=== PATIENT | female | born 1995 | race Hispanic/Latino ===

== ENCOUNTER 2017-10-04 04:13 | Emergency (ER) | payer MEDICAID, OTHER ==
[2017-10-04] MEDS ORDERED: ACETAMINOPHEN 325 MG TAB ONE (05:55)
== END 2017-10-04 07:27 | disposition home or self-care (01) ==
LOC: EDH 04:13
DX: O9A.211 Injury, poisoning and certain other consequences of external causes complicating pregnancy, first trimester (principal); S00.83XA Contusion of other part of head, initial encounter; M54.9 Dorsalgia, unspecified; Z3A.09 9 weeks gestation of pregnancy; Y04.0XXA Assault by unarmed brawl or fight, initial encounter; Y93.89 Activity, other specified; Y92.89 Other specified places as the place of occurrence of the external cause; Y99.8 Other external cause status

== ENCOUNTER 2018-02-01 22:51 | Observation (INO) | payer MEDICAID ==
[~2018-02-01] VITALS: Ht 152.4 cm; Wt 54.9 kg
[2018-02-01] MEDS ORDERED: FERR1TAB22 PO (23:09)
[2018-02-01] MEDS ORDERED: PREN-196 PO (23:09)
[2018-02-01 23:20] LABS: APPEARANCE,URINE Cloudy (CLEAR); BILIRUBIN,URINE Negative (NEGATIVE); COLOR,URINE Yellow (YELLOW); GLUCOSE, URINE (UA) Negative (NEGATIVE); KETONES,URINE Negative (NEGATIVE); LEUKOCYTE ESTERASE ,URINE Large (NEGATIVE); NITRATE,URINE Negative (NEGATIVE); OCCULT BLOOD,URINE Trace (NEGATIVE); PROTEIN,URINE Negative (NEGATIVE); UROBILINOGEN,URINE 0.2 mg/dL (0.2-1.0)
[2018-02-01 23:27] LABS: BACTERIA,URINE Few /HPF (None Seen); WBC,URINE 26-50 /HPF (0-1)
[2018-02-01 23:28] LABS: AMORPHOUS SEDIMENT,UR Many /LPF (None Seen); AMPHET/METH SCREEN,URINE NEGATIVE (NEGATIVE); BARBITURATE SCREEN, URINE NEGATIVE (NEGATIVE); BENZODIAZEPINES SCREEN,URINE NEGATIVE (NEGATIVE); CANNABINOID SCREEN,URINE NEGATIVE (NEGATIVE); COCAINE SCREEN,URINE NEGATIVE (NEGATIVE); MUCUS,URINE Moderate LPF (None Seen); OPIATE SCREEN,URINE NEGATIVE (NEGATIVE); PHENCYCLIDINE SCREEN,URINE NEGATIVE (NEGATIVE); SQUAMOUS EPITHELIAL CELL,UR Many /HPF (0-2)
[2018-02-02] MEDS ORDERED: CEFTRIAXONE SODIUM 1 GM ONE (00:55)
[2018-02-02] MEDS ORDERED: CEFTRIAXONE 1GM/D5W 50ML 50 ML IV SCH (01:00)
[2018-02-02] MEDS ORDERED: LACTATED RINGERS 1000ML 1,000 ML IV ONE (01:12)
[2018-02-02] MEDS ORDERED: LACTATED RINGERS 1000ML 1,000 ML IV SCH (01:15)
[2018-02-02] MEDS ORDERED: CEFTRIAXONE SODIUM 1 GM IVP SCH (02:15)
== END 2018-02-02 02:45 | disposition home or self-care (01) ==
LOC: EDH 22:51 → LDH 22:52
PROVIDERS: ADMIT Specialist; ATTEND Specialist
DX: O26.852 Spotting complicating pregnancy, second trimester (principal); Z3A.26 26 weeks gestation of pregnancy
CPT/HCPCS: 80305; 81001; 96360; 99285; G0378 ×4; J0696 ×2; J7120

== ENCOUNTER 2018-02-07 01:03 | Observation (INO) | payer MEDICAID ==
[~2018-02-07] VITALS: Ht 152.4 cm; Wt 55.3 kg
[~2018-02-07 01:03] MED LIST: FERR1TAB22 PO; PREN-196 PO
[2018-02-07 01:33] LABS: APPEARANCE,URINE Cloudy (CLEAR); BILIRUBIN,URINE Negative (NEGATIVE); COLOR,URINE Yellow (YELLOW); GLUCOSE, URINE (UA) Negative (NEGATIVE); KETONES,URINE Negative (NEGATIVE); LEUKOCYTE ESTERASE ,URINE Large (NEGATIVE); NITRATE,URINE Negative (NEGATIVE); OCCULT BLOOD,URINE Moderate (NEGATIVE); PROTEIN,URINE Negative (NEGATIVE); UROBILINOGEN,URINE 0.2 mg/dL (0.2-1.0)
[2018-02-07 01:40] LABS: AMPHET/METH SCREEN,URINE NEGATIVE (NEGATIVE); BARBITURATE SCREEN, URINE NEGATIVE (NEGATIVE); BENZODIAZEPINES SCREEN,URINE NEGATIVE (NEGATIVE); CANNABINOID SCREEN,URINE NEGATIVE (NEGATIVE); COCAINE SCREEN,URINE NEGATIVE (NEGATIVE); OPIATE SCREEN,URINE NEGATIVE (NEGATIVE); PHENCYCLIDINE SCREEN,URINE NEGATIVE (NEGATIVE)
[2018-02-07 01:42] LABS: BACTERIA,URINE Moderate /HPF (None Seen); MUCUS,URINE Moderate LPF (None Seen); SQUAMOUS EPITHELIAL CELL,UR Moderate /HPF (0-2)
[2018-02-07] MEDS ORDERED: CEFTRIAXONE 1GM/D5W 50ML 50 ML IV SCH (02:00)
[2018-02-07] MEDS ORDERED: LACTATED RINGERS 1000ML 1,000 ML IV SCH (02:00)
[2018-02-07] MEDS ORDERED: CEFTRIAXONE SODIUM 1 GM IVP SCH (02:00)
== END 2018-02-07 04:10 | disposition home or self-care (01) ==
LOC: EDH 01:03 → LDH 01:04
PROVIDERS: ADMIT Specialist; ATTEND Specialist
DX: O26.852 Spotting complicating pregnancy, second trimester (principal); O26.892 Other specified pregnancy related conditions, second trimester; R10.9 Unspecified abdominal pain; O99.322 Drug use complicating pregnancy, second trimester; F14.10 Cocaine abuse, uncomplicated; F19.10 Other psychoactive substance abuse, uncomplicated; Z3A.27 27 weeks gestation of pregnancy; Z87.891 Personal history of nicotine dependence
CPT/HCPCS: 80305; 81001; 96361; 96374; 99285; G0378 ×3; J0696 ×2; J7120; 96360

== ENCOUNTER 2018-03-08 22:06 | Observation (INO) | payer MEDICAID ==
[~2018-03-08] VITALS: Ht 152.4 cm; Wt 55.3 kg
[2018-03-08] MEDS ORDERED: LACTATED RINGERS 1000ML 1,000 ML IV SCH ×2 (22:30→23:30)
[2018-03-08 22:42] LABS: APPEARANCE,URINE Clear (CLEAR); BILIRUBIN,URINE Negative (NEGATIVE); COLOR,URINE Yellow (YELLOW); GLUCOSE, URINE (UA) Negative (NEGATIVE); KETONES,URINE Trace mg/dL (NEGATIVE); LEUKOCYTE ESTERASE ,URINE Moderate (NEGATIVE); NITRATE,URINE Negative (NEGATIVE); OCCULT BLOOD,URINE Negative (NEGATIVE); PROTEIN,URINE Negative (NEGATIVE)
[2018-03-08 22:52] LABS: AMPHET/METH SCREEN,URINE NEGATIVE (NEGATIVE); BARBITURATE SCREEN, URINE NEGATIVE (NEGATIVE); BENZODIAZEPINES SCREEN,URINE NEGATIVE (NEGATIVE); CANNABINOID SCREEN,URINE NEGATIVE (NEGATIVE); COCAINE SCREEN,URINE NEGATIVE (NEGATIVE); OPIATE SCREEN,URINE NEGATIVE (NEGATIVE); PHENCYCLIDINE SCREEN,URINE NEGATIVE (NEGATIVE)
[2018-03-08 22:57] LABS: BACTERIA,URINE Few /HPF (None Seen); CALCIUM OXALATE CRYSTALS,UR Moderate /LPF (None Seen); MUCUS,URINE Few LPF (None Seen); RBC,URINE 0-1 /HPF (0-1); SQUAMOUS EPITHELIAL CELL,UR Rare /HPF (0-2); WBC,URINE 0-1 /HPF (0-1)
[2018-03-08] MEDS ORDERED: LACTATED RINGERS 1000ML IV SCH (23:30)
[2018-03-08] MEDS ORDERED: CITRIC ACID/SODIUM CITRATE 30 ML UDCUP PO SCH (23:30)
[2018-03-08] MEDS ORDERED: PROMETHAZINE HCL 25 MG/ML 1ML AMPULE IM SCH (23:30)
== END 2018-03-09 00:48 | disposition home or self-care (01) ==
LOC: EDH 22:06 → LDH 22:07
PROVIDERS: ADMIT Obstetrics & Gynecology; ATTEND Obstetrics & Gynecology
DX: O26.893 Other specified pregnancy related conditions, third trimester (principal); M54.9 Dorsalgia, unspecified; O21.2 Late vomiting of pregnancy; R51 Headache; R10.10 Upper abdominal pain, unspecified; R42 Dizziness and giddiness; Z3A.31 31 weeks gestation of pregnancy; Z79.899 Other long term (current) drug therapy
CPT/HCPCS: 80305; 81001; 96360; 96372; 99285; G0378 ×3; J2550; J7120; 96361

== ENCOUNTER 2023-06-29 05:05 | Observation (INO) | payer OTHER, MEDICAID ==
[~2023-06-29] VITALS: Ht 152.4 cm; Wt 63.0 kg
[2023-06-29 05:06] VITALS: PULSE 95; RESP 18
[2023-06-29 05:48] LABS: APPEARANCE,URINE CLEAR (CLEAR); BILIRUBIN,URINE NEGATIVE (NEGATIVE); COLOR,URINE LIGHT-YELLOW (YELLOW); GLUCOSE, URINE (UA) NEGATIVE (NEGATIVE); KETONES,URINE NEGATIVE (NEGATIVE); LEUKOCYTE ESTERASE ,URINE 25 Leu/uL (NEGATIVE); NITRATE,URINE NEGATIVE (NEGATIVE); OCCULT BLOOD,URINE NEGATIVE (NEGATIVE); PH,URINE 5.5 (5.0-8.0); PROTEIN,URINE NEGATIVE (NEGATIVE); UROBILINOGEN,URINE 0.2 mg/dL (0.2-1.0)
[2023-06-29 05:49] LABS: ADD UA MICROSCOPIC YES
[2023-06-29 05:50] LABS: MUCUS,URINE RARE LPF (None Seen); RBC,URINE 0-1 /HPF (0-1); SQUAMOUS EPITHELIAL CELL,UR RARE /HPF (0-2)
[2023-06-29 05:55] LABS: AMPHET/METH SCREEN,URINE NEGATIVE (NEGATIVE); BARBITURATE SCREEN, URINE NEGATIVE (NEGATIVE); BENZODIAZEPINES SCREEN,URINE NEGATIVE (NEGATIVE); CANNABINOID SCREEN,URINE NEGATIVE (NEGATIVE); COCAINE SCREEN,URINE NEGATIVE (NEGATIVE); OPIATE SCREEN,URINE NEGATIVE (NEGATIVE); PHENCYCLIDINE SCREEN,URINE NEGATIVE (NEGATIVE)
[2023-06-29 06:08] VITALS: BP 115/72
== END 2023-06-29 07:16 | disposition home or self-care (01) ==
LOC: EDH 05:05 → LDH 05:06
PROVIDERS: ADMIT Obstetrics & Gynecology; ATTEND Obstetrics & Gynecology
DX: O42.92 Full-term premature rupture of membranes, unspecified as to length of time between rupture and onset of labor (principal); O99.891 Other specified diseases and conditions complicating pregnancy; R10.9 Unspecified abdominal pain; R35.0 Frequency of micturition; M54.9 Dorsalgia, unspecified; Z87.891 Personal history of nicotine dependence; Z87.442 Personal history of urinary calculi; Z79.899 Other long term (current) drug therapy; Z3A.36 36 weeks gestation of pregnancy
CPT/HCPCS: 80305; 81001; 76815; G0378 ×2; G0379

== ENCOUNTER 2023-07-06 21:05 | Observation (INO) | payer OTHER, MEDICAID ==
[~2023-07-06] VITALS: Ht 152.4 cm; Wt 64.9 kg
[2023-07-06 21:14] VITALS: BP 119/77; PULSE 100; RESP 18
[2023-07-06 21:45] LABS: APPEARANCE,URINE CLEAR (CLEAR); BILIRUBIN,URINE NEGATIVE (NEGATIVE); COLOR,URINE LIGHT-YELLOW (YELLOW); GLUCOSE, URINE (UA) NEGATIVE (NEGATIVE); KETONES,URINE NEGATIVE (NEGATIVE); LEUKOCYTE ESTERASE ,URINE NEGATIVE Leu/uL (NEGATIVE); NITRATE,URINE NEGATIVE (NEGATIVE); OCCULT BLOOD,URINE NEGATIVE (NEGATIVE); PH,URINE 6.5 (5.0-8.0); PROTEIN,URINE NEGATIVE (NEGATIVE); UROBILINOGEN,URINE 0.2 mg/dL (0.2-1.0)
[2023-07-06 21:47] LABS: ADD UA MICROSCOPIC YES
[2023-07-06 21:55] LABS: BACTERIA,URINE RARE /HPF (None Seen); MUCUS,URINE RARE LPF (None Seen); RBC,URINE 0-1 /HPF (0-1); SQUAMOUS EPITHELIAL CELL,UR RARE /HPF (0-2); WBC,URINE 0-1 /HPF (0-1)
== END 2023-07-06 22:10 | disposition home or self-care (01) ==
LOC: EDH 21:05 → LDH 21:28
PROVIDERS: ADMIT Obstetrics & Gynecology; ATTEND Obstetrics & Gynecology
DX: O42.92 Full-term premature rupture of membranes, unspecified as to length of time between rupture and onset of labor (principal); Z87.442 Personal history of urinary calculi; Z87.891 Personal history of nicotine dependence; Z3A.37 37 weeks gestation of pregnancy
CPT/HCPCS: 81001; G0379; G0378

== ENCOUNTER 2023-07-14 14:29 | Observation (INO) | payer OTHER, MEDICAID ==
[~2023-07-14] VITALS: Ht 152.4 cm; Wt 63.5 kg
[2023-07-14 14:32] VITALS: BP 134/75; PULSE 82; RESP 16; O2SAT 96
[2023-07-14] MEDS ORDERED: LACTATED RINGERS 1000ML 1,000 ML IV PRN (16:00)
[2023-07-14] MEDS ORDERED: OXYTOCIN-LR 30 UNITS/500ML 500 ML IV SCH (16:00)
[2023-07-14] MEDS ORDERED: AMPICILLIN 2GM+NS 100ML 100 ML IV SCH (16:00)
[2023-07-14] MEDS ORDERED: AMPICILLIN 1GM+NS 50ML 50 ML IV SCH (16:00)
[2023-07-14 17:07] LABS: APPEARANCE,URINE CLEAR (CLEAR); BILIRUBIN,URINE NEGATIVE (NEGATIVE); COLOR,URINE COLORLESS (YELLOW); GLUCOSE, URINE (UA) NEGATIVE (NEGATIVE); KETONES,URINE NEGATIVE (NEGATIVE); LEUKOCYTE ESTERASE ,URINE NEGATIVE Leu/uL (NEGATIVE); NITRATE,URINE NEGATIVE (NEGATIVE); OCCULT BLOOD,URINE NEGATIVE (NEGATIVE); PROTEIN,URINE NEGATIVE (NEGATIVE); UROBILINOGEN,URINE 0.2 mg/dL (0.2-1.0)
[2023-07-14 17:13] LABS: ADD UA MICROSCOPIC YES; AMPHET/METH SCREEN,URINE NEGATIVE (NEGATIVE); BARBITURATE SCREEN, URINE NEGATIVE (NEGATIVE); BENZODIAZEPINES SCREEN,URINE NEGATIVE (NEGATIVE); CANNABINOID SCREEN,URINE NEGATIVE (NEGATIVE); COCAINE SCREEN,URINE NEGATIVE (NEGATIVE); OPIATE SCREEN,URINE NEGATIVE (NEGATIVE); PHENCYCLIDINE SCREEN,URINE NEGATIVE (NEGATIVE)
[2023-07-14 17:17] LABS: BACTERIA,URINE RARE /HPF (None Seen); RBC,URINE 0-1 /HPF (0-1); SQUAMOUS EPITHELIAL CELL,UR RARE /HPF (0-2); UNCLASSIFIED CRYSTAL 3 /HPF (None Seen)
== END 2023-07-14 18:00 | disposition home or self-care (01) ==
LOC: EDH 14:29 → OBSVTOIN 14:30 → LDH 14:30 → INTOOBSV 14:30
PROVIDERS: ADMIT Obstetrics & Gynecology; ATTEND Obstetrics & Gynecology
DX: O36.8130 Decreased fetal movements, third trimester, not applicable or unspecified (principal); Z87.891 Personal history of nicotine dependence; Z79.899 Other long term (current) drug therapy; Z3A.39 39 weeks gestation of pregnancy
CPT/HCPCS: 80305; 81001; 76819; 76805; G0378 ×2; G0379